=== PATIENT | male | born 1945 | race Caucasian/White ===

== ENCOUNTER → 2020-12-20 | Outpatient (CLI) | payer OTHER ==
[~2020-12-20] MED LIST: COLACE100 MG PO; DAILY VALUE1 EACH PO; HYDROCODON-ACE1 EAC2 PO; NORVASC5 MG PO; OMEPRAZOLE40 MG PO; VITAMIN B12 PO
== END ==
LOC: OPSV2 10:27
DX: Z01.810 Encounter for preprocedural cardiovascular examination (principal)
CPT/HCPCS: 93005

== ENCOUNTER → 2020-12-25 | Day surgery (SDC) | payer OTHER | END | disposition home or self-care (01) | LOC: OR 06:24 | DX: K40.90 Unilateral inguinal hernia, without obstruction or gangrene, not specified as recurrent (principal); I10 Essential (primary) hypertension; Z20.822 Contact with and (suspected) exposure to COVID-19 | CPT/HCPCS: C1781; J0690; J1100; J1885; J2001; J2405; J2704; J2710; J7120 ==